=== PATIENT | female | born 1980 | race Caucasian/White ===

== ENCOUNTER 2018-01-26 03:22 | Emergency (ER) | payer OTHER ==
[~2018-01-26] VITALS: Ht 160 cm; Wt 108.9 kg
[~2018-01-26 03:22] MED LIST: AUGMENTIN 875875 M1 PO; AZITHROMYCIN 2250 MG PO; BUSPAR30 MG; CAMILA0.35 MG PO; CARAFATE 1 GM TA1 G1 PO; CHLORPROMAZINE100 MG PO; DEXALANT; DIFLUCAN150 MG PO; GEODON20 MG PO; HYDROCODONE-AP1 EAC6 PO; HYDROCODONE-APA1 TA1 PO; IBUPROFEN 800800 M1 PO; LOMOTIL TABLET1 EACH PO; MEDROLDOSEPACK PO; PHENERGAN 25 MG25 M1 PO; PREDNISONE 20 M20 M1 PO; PROAIR HFA8.5 GM INH; PROPRANOLOL 1010 MG PO; SIMVASTATIN20 MG PO; SPIRIVA INH; TEGRETOL XR400 MG; TRILEPTAL150 MG PO; VALIUM5 MG; VALIUM5 MG PO; VENTOLIN HFA 1818 GM INH; VESICARE 5 MG TA5 M1; VISTARIL 25 MG25 M1 PO
[2018-01-26] MEDS ORDERED: SYMBICORT80 MCG/4.1 (03:36)
[2018-01-26 04:02] LABS: URINE BILIRUBIN NEGATIVE (Negative); URINE BLOOD TRACE (Negative); URINE CLARITY CLEAR; URINE COLOR YELLOW; URINE GLUCOSE-RANDOM NEGATIVE (Negative); URINE KETONES NEGATIVE (Negative); URINE LEUKOCYTES-REFLEX NEGATIVE (Negative); URINE NITRITE-REFLEX NEGATIVE (Negative); URINE PROTEIN NEGATIVE (Negative); URINE SPECIFIC GRAVITY 1.015 (1.005-1.030)
[2018-01-26 05:11] LABS: INFLUENZA A ANTIGEN None Detected (None Detect); INFLUENZA B ANTIGEN None Detected (None Detect)
[2018-01-26] MEDS ORDERED: CARAFATE 1 GM TA1 GM PO (05:19)
[2018-01-26] MEDS ORDERED: ZOFRAN ODT4 MG PO (05:19)
[2018-01-26 05:37] VITALS: BP 123/54
== END 2018-01-26 05:39 | disposition home or self-care (01) ==
LOC: M.ERS 03:22
PROVIDERS: Emergency Medicine
DX: J06.9 Acute upper respiratory infection, unspecified (principal); J45.909 Unspecified asthma, uncomplicated; F31.9 Bipolar disorder, unspecified; F43.10 Post-traumatic stress disorder, unspecified; K21.9 Gastro-esophageal reflux disease without esophagitis; F17.210 Nicotine dependence, cigarettes, uncomplicated; Z90.49 Acquired absence of other specified parts of digestive tract; Z88.1 Allergy status to other antibiotic agents; Z88.8 Allergy status to other drugs, medicaments and biological substances

== ENCOUNTER 2019-01-27 12:49 | Emergency (ER) | payer MEDICARE ==
[~2019-01-27] VITALS: Ht 160 cm; Wt 106.6 kg
[~2019-01-27 12:49] MED LIST changes: +CARAFATE 1 GM TA1 GM PO; +SYMBICORT80 MCG/4.1; +ZOFRAN ODT4 MG PO
[2019-01-27] MEDS ORDERED: [UNRECOGNIZED DRUG - REMARK] PO (13:03)
[2019-01-27 13:13] LABS: ABSOLUTE BASOPHILS 0.1 thou/uL (0.0-0.2); ABSOLUTE EOSINOPHILS 0.2 thou/uL (0.0-0.7); ABSOLUTE MONOCYTES 0.7 thou/uL (0.0-1.2); ABSOLUTE NEUTROPHILS 4.2 thou/uL (1.6-8.1); BASOPHILS 1.1 %; EOSINOPHILS 3.3 %; HEMATOCRIT 37.6 % (37.0-47.0); HEMOGLOBIN 12.5 gm/dL (12.0-15.0); MCH 27.9 pg (26.0-34.0); MCHC 33.2 g/dL (28.0-37.0); MONOCYTES 9.4 %; MPV 7.1 fl. (7.2-11.1); NUCLEATED RBCS 0 /100WBC; PLATELET COUNT* 370 thou/uL (150-400); POLYS 58.2 %; RBC 4.47 mil/uL (4.20-5.00); RDW-CV 16.5 % (10.5-14.5); WBC 7.2 thou/uL (4.0-11.0)
[2019-01-27 13:33] LABS: ALBUMIN 3.5 g/dL (3.4-5.0); ALKALINE PHOSPHATASE 138 U/L (46-116); ANION GAP 10 mmol/L (7-16); BUN 12 mg/dL (7-18); CALCIUM 8.6 mg/dL (8.5-10.1); CHLORIDE 103 mmol/L (98-107); CO2 25 mmol/L (21-32); CREATININE 0.8 mg/dL (0.6-1.3); GLUCOSE 96 mg/dL (70-99); POTASSIUM 3.7 mmol/L (3.5-5.1); SGOT 13 U/L (15-37); SGPT 19 U/L (30-65); SODIUM 138 mmol/L (136-145); TOTAL BILIRUBIN 0.1 mg/dL (<0.1-1.0); TOTAL PROTEIN 7.2 g/dL (6.4-8.2); TROPONIN-I LEVEL <0.06 ng/mL (<0.06)
--- NOTE | 2019-01-27 15:20 | EKG ---
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: : 1980 Requested By: Marcell Fraire Order Number: [id number] MD: Joaquin Toro Measurements Intervals Collins Rate: 71 P: 27 WI: 149 QRS: 24 QRSD: 111 T: 15 QT: 411 QTc: 447 Interpretive Statements Sinus rhythm Low voltage, precordial leads Borderline T abnormalities, anterior leads Compared to ECG 12/29/2015 17:31:43 Low QRS voltage now present T-wave abnormality now present Electronically Signed On 01-27-2019 15:20:39 CDT by Joaquin Toro [email or web address] <ELECTRONICALLY SIGNED> By: Joaquin Toro MD, [facility] 01/27/19 1520 1254 1254 Joaquin Toro MD, FACC /EPI
[2019-01-27] MEDS ORDERED: VENTOLIN HFA 1818 GM INH (16:20)
[2019-01-27] MEDS ORDERED: PREDNISONE50 MG PO (16:20)
[2019-01-27] MEDS ORDERED: ZPAK PO (16:20)
[2019-01-27 16:31] VITALS: BP 120/60
== END 2019-01-27 16:31 | disposition home or self-care (01) ==
LOC: M.ERS 12:49
PROVIDERS: Emergency Medicine Emergency Medical Services
DX: J18.9 Pneumonia, unspecified organism (principal); F31.9 Bipolar disorder, unspecified; J45.909 Unspecified asthma, uncomplicated; F17.210 Nicotine dependence, cigarettes, uncomplicated; E28.2 Polycystic ovarian syndrome; K21.9 Gastro-esophageal reflux disease without esophagitis; Z88.1 Allergy status to other antibiotic agents; Z88.8 Allergy status to other drugs, medicaments and biological substances; Z90.49 Acquired absence of other specified parts of digestive tract